=== PATIENT | male | born 1955 | race Caucasian/White ===

== ENCOUNTER 2020-06-30 08:17 | Inpatient (IN) | payer OTHER ==
[2020-06-22 11:59] LABS: BASOPHILS # (AUTO) 0.1 X10'3 (0-0.2); BASOPHILS % (AUTO) 0.9 % (0-1); EOSINOPHILS # (AUTO) 0.1 X10'3 (0-0.9); EOSINOPHILS % (AUTO) 1.3 % (0-6); LYMPHOCYTES # (AUTO) 1.9 X10'3 (1.1-4.8); LYMPHOCYTES % (AUTO) 27.8 % (21-51); MEAN CORPUSCULAR HEMOGLOBIN 30.4 PG (27.0-31.0); MEAN CORPUSCULAR HGB CONC 32.9 g/dL (33.0-36.5); MEAN CORPUSCULAR VOLUME 92.4 FL (78-98); MEAN PLATELET VOLUME 8.4 FL (7.4-10.4); MONOCYTES # (AUTO) 0.6 X10'3 (0-0.9); NEUTROPHILS # (AUTO) 4.1 X10'3 (1.8-7.7); PRE OP HEMATOCRIT 39.4 % (42.0-52.0); PRE OP PLATELET COUNT 290 X10'3 (140-440); RED BLOOD COUNT 4.26 X10'6 (4.70-6.10); RED CELL DISTRIBUTION WIDTH 13.4 % (11.5-14.5)
[2020-06-22 12:18] LABS: ALBUMIN 4.1 G/DL (3.4-5.0); ALBUMIN/GLOBULIN RATIO 1.1 (1.1-1.5); ALKALINE PHOSPHATASE 47 IU/L (46-116); BLOOD UREA NITROGEN 21 MG/DL (7-18); BUN/CREATININE RATIO 31.8 (5.4-32.0); CALCIUM 8.9 MG/DL (8.5-10.1); CHLORIDE 108 MMOL/L (99-107); CREATININE 0.66 MG/DL (0.60-1.10); PRE OP ALT 22 U/L (30-65); PRE OP ANION GAP 7 (8-16); PRE OP AST 18 U/L (10-37); PRE OP BILIRUB, TOTAL 0.3 MG/DL (0.0-1.0); PRE OP GLUCOSE 97 MG/DL (70-104); PRE OP POTASSIUM 4.6 MMOL/L (3.4-5.1); PRE OP SODIUM 142 MMOL/L (135-145); TOTAL CARBON DIOXIDE 26.9 MMOL/L (24-32); TOTAL PROTEIN 7.8 G/DL (6.4-8.2); eGFR > 90 ML/MIN
[~2020-06-30] VITALS: Ht 188 cm; Wt 95.3 kg
[2020-06-30] VITALS (16 sets, daily range): BP systolic 104–130; BP diastolic 40–72
[~2020-06-30 08:17] MED LIST: ARIP2TAB20 PO; BUPR1TAB44 SL; CLON-418 PO; FLUO20CA39 PO; FLUT16SP20 BOTHNARES; LEVO125T PO; MULT-1085 PO; NAPR375T5 PO; [UNRECOGNIZED DRUG - CODE] PO; ceFAZolin 2gm in dextrose, iso 50 ML IV ONE; famotidine 20mg tablet PO ONE; ringers solution, lacted 1,000 ML IV SCH; vancomycin 1,500 MG in NS 300ml IV soln IV ONE
[2020-06-30] MEDS ORDERED: ceFAZolin inj. 3,000 MG in sodium chloride irrig. sol 3,000 ML IR ONE (09:40)
[2020-06-30] MEDS ORDERED: sevoflurane 250ml liquid IH ONE (10:21)
[2020-06-30] MEDS ORDERED: vancomycin 1,000mg inj ONE (10:22)
[2020-06-30] MEDS ORDERED: ceFAZolin 1000mg inj ONE (10:22)
[2020-06-30] MEDS ORDERED: fentaNYL/PF 50MCG/1 ML 2ML syringe ONE (10:24)
[2020-06-30] MEDS ORDERED: TRANEXAMIC ACID 1 GM IN NACL,ISO-OS 100 ML IV ONE (10:25)
[2020-06-30] MEDS ORDERED: MIDAZolam 5mg/5ml vial ONE (10:27)
[2020-06-30] MEDS ORDERED: ROPIVAcaine 0.5% (5mg/ml) 30ml vial ONE (10:28)
[2020-06-30] MEDS ORDERED: morphine 2 MG/ML inj. syringe IV PRN (11:40)
[2020-06-30] MEDS ORDERED: ROPIVAcaine 0.2%/PF PUMP/bolus 550 ML INTERSCALE SCH (11:40)
[2020-06-30] MEDS ORDERED: ondansetron/PF 4mg/2ml inj IV PRN ×2 (11:40→12:50)
[2020-06-30] MEDS ORDERED: proCHLORperazine 10 MG/2 ml inj IV PRN (11:40)
[2020-06-30] MEDS ORDERED: ringers solution, lacted 1,000 ML IV SCH (11:40)
[2020-06-30] MEDS ORDERED: ROPIVAcaine 0.2% (10 MG/5 ML) BOLUS INJECTION INTERSCALE PRN (11:40)
[2020-06-30] MEDS ORDERED: meperidine/PF 25mg/ml syringe IV PRN ×3 (11:40)
[2020-06-30] MEDS ORDERED: morphine 4 MG/ML inj SYRINge IV PRN (11:40)
[2020-06-30] MEDS ORDERED: propofol inj 20 ML IV ONE (12:09)
[2020-06-30] MEDS ORDERED: oxyCODONE IR 5mg (immed. release) tablet PO PRN ×2 (12:50)
[2020-06-30] MEDS ORDERED: HYDROmorphone inj. 0.5 MG/0.5 ML DISP.SYRIN IV PRN (12:50)
[2020-06-30] MEDS ORDERED: HYDROmorphone 1 mg/ml syringe IV PRN (12:50)
[2020-06-30] MEDS ORDERED: bisacodyl 10mg suppository rectal RC PRN (12:50)
[2020-06-30] MEDS ORDERED: acetaminophen 325mg tablet PO PRN (12:50)
[2020-06-30] MEDS ORDERED: diphenhydrAMINE 25mg capsule PO PRN ×2 (12:50)
[2020-06-30] MEDS ORDERED: magnesium hydroxide 30ml (MOM) UD suspension PO PRN (12:50)
--- NOTE | 2020-06-30 13:49 | NUR ---
ALL CRITERIA FOR TRANSFER TO THE FLOOR HAS BEEN ACHIEVED. REPORT GIVEN AND ALL QUESTIONS ANSWERED, VSS. BED LOW 2 RAILS UP, CALL LIGHT PRESENT AND PATIENT HOOKED UP TO ALL LINES AND VSS. PATIENTS RN PRESENT TO ACCEPT CARE. MARY VALVERDE PRESENT TO ASSESS. VSS. DENIES PAIN. Addendum: 06/30/20 at 1402 by Rodrigue Reid - MARY HERNANDEZ Amended: Links added.
[2020-06-30] MEDS: acetaminophen 325mg tablet PO SCH ×2 (15:38→20:44)
[2020-06-30] MEDS: gabapentin 300mg capsule PO SCH ×2 (15:39→20:44)
[2020-06-30] MEDS: potassium cl 20mEq in 1/2 NS 1,000 ML IV SCH ×2 (15:39→20:44)
[2020-06-30] MEDS ORDERED: tranexamic acid inj. 1,000 MG in normal saline 100ml IV soln 100 ML IV ONE (16:00)
--- NOTE | 2020-06-30 18:30 | NUR ---
Patient in room [facility]TH[facility] 4023. I have received report from Beth HERNANDEZ and had the opportunity to ask questions and assume patient care.
--- NOTE | 2020-06-30 18:31 | NUR ---
Problems reprioritized. Patient report given, questions answered & plan of care reviewed with Imer HERNANDEZ.
[2020-06-30] MEDS ORDERED: ceFAZolin/D5W- 1GM premix 50 ML IV SCH ×2 (19:10→19:17)
[2020-06-30] MEDS ORDERED: naproxen sodium 220mg tablet PO SCH (20:00)
[2020-06-30] MEDS: docusate sod 250mg capsule PO SCH (20:43)
[2020-06-30] MEDS: vancomycin/NS 1 GM ADD-VANTAGE 250 ML IV SCH (20:43)
[2020-06-30] MEDS: cloNIDine 0.1 mg tablet PO SCH (20:44)
[2020-06-30] MEDS ORDERED: sennosides 8.6mg tablet PO SCH (21:00)
[2020-07-01] MEDS: acetaminophen 325mg tablet PO SCH ×2 (01:52→07:33)
[2020-07-01 02:00] VITALS: BP 111/50
[2020-07-01] MEDS: potassium cl 20mEq in 1/2 NS 1,000 ML IV SCH (04:50)
[2020-07-01 06:00] VITALS: BP 106/50
--- NOTE | 2020-07-01 06:30 | NUR ---
Patient in room [facility]TH[facility] 4023. I have received report from Imer and had the opportunity to ask questions and assume patient care.
--- NOTE | 2020-07-01 06:30 | NUR ---
Problems reprioritized. Patient report given, questions answered & plan of care reviewed with Jennifer HERNANDEZ.
[2020-07-01 06:50] LABS: BASOPHILS % (AUTO) 0.3 % (0-1); EOSINOPHILS % (AUTO) 0.1 % (0-6); LYMPHOCYTES % (AUTO) 7.7 % (21-51); MEAN CORPUSCULAR HEMOGLOBIN 30.5 PG (27.0-31.0); MEAN CORPUSCULAR HGB CONC 33.4 g/dL (33.0-36.5); MEAN CORPUSCULAR VOLUME 91.3 FL (78-98); MEAN PLATELET VOLUME 8.8 FL (7.4-10.4); MONOCYTES # (AUTO) 1.1 X10'3 (0-0.9); MONOCYTES % (AUTO) 8.1 % (2-12); NEUTROPHILS % (AUTO) 83.8 % (42-75); PLATELET COUNT 254 X10'3 (140-440); RED BLOOD COUNT 3.95 X10'6 (4.70-6.10); RED CELL DISTRIBUTION WIDTH 13.3 % (11.5-14.5); WHITE BLOOD COUNT 13.1 X10'3 (4.5-11.0)
[2020-07-01] MEDS ORDERED: levoTHYROXINE 100mcg tablet PO SCH (07:00)
[2020-07-01] MEDS ORDERED: OXYC-150 PO (07:02)
[2020-07-01 07:15] LABS: ANION GAP 10 (8-16); CHLORIDE 104 MMOL/L (99-107); POTASSIUM 3.9 MMOL/L (3.5-5.1); SODIUM 137 MMOL/L (135-145); TOTAL CARBON DIOXIDE 23.5 MMOL/L (24-32)
[2020-07-01] MEDS: vancomycin/NS 1 GM ADD-VANTAGE 250 ML IV SCH (07:23)
[2020-07-01] MEDS: cloNIDine 0.1 mg tablet PO SCH (07:32)
[2020-07-01] MEDS: gabapentin 300mg capsule PO SCH (07:32)
[2020-07-01] MEDS: docusate sod 250mg capsule PO SCH (07:32)
[2020-07-01] MEDS ORDERED: fluticasone nasal spray 16GM bottle NS SCH (08:00)
[2020-07-01] MEDS ORDERED: FLUoxetine 20mg capsule PO SCH (08:00)
[2020-07-01] MEDS ORDERED: aspirin 325mg tablet PO SCH (08:30)
[2020-07-01] MEDS ORDERED: ASPI-1 PO (08:54)
--- NOTE | 2020-07-01 10:50 | NUR ---
Reviewed discharge instructions with pt. Pt verbalized understanding. Pt is alert, oriented and ready to discharge. Pt lives in [place]. He will stay one night in town and travel home over the next two days. All of pt's belongings were returned to pt. Pt was wheeled downstairs to be driven to the hotel by his spouse.
[2020-07-01] MEDS ORDERED: celeCOXIB 100mg capsule PO SCH (20:00)
[2020-07-02] MEDS ORDERED: acetaminophen 325mg tablet PO PRN (12:50)
== END 2020-07-01 10:45 | disposition home or self-care (01) | DRG 483 ==
LOC: PAS IN 08:17 → UNDOADMIN 08:17 → EDSTATUS 10:00 → PAS IN 12:47 → ORTHO 4S 13:45
PROVIDERS: ADMIT Orthopaedic Surgery; ATTEND Orthopaedic Surgery
PROC: 3E0T3BZ Introduction of Anesthetic Agent into Peripheral Nerves and Plexi, Percutaneous Approach (ICD-10-PCS; 2020-06-30)
PROC: 0RRJ00Z Replacement of Right Shoulder Joint with Reverse Ball and Socket Synthetic Substitute, Open Approach (ICD-10-PCS; principal; 2020-06-30 10:21)
DX: M19.011 Primary osteoarthritis, right shoulder (principal); M25.511 Pain in right shoulder; E03.9 Hypothyroidism, unspecified; D50.0 Iron deficiency anemia secondary to blood loss (chronic); Z20.828 Contact with and (suspected) exposure to other viral communicable diseases
CPT/HCPCS: Z7506; Z7508; 36415; 73020; 80051; 80053; 82948; 84443; 85025; 87081; 87635; 93005; 97110; 97161; 97530; A4215; A4565; A4618; A7000; C1776; G0378; J0690; J2250; J2704; J2795; J3010; J3370; J3480; J7040; J7120